=== PATIENT | male | born 1985 | race Caucasian/White ===

== ENCOUNTER 2017-05-04 07:03 | Emergency (ER) | payer OTHER ==
[2017-05-04 07:39] VITALS: TEMP 98.5; BMI 28.0
--- NOTE | 2017-05-04 07:42 | PDOC ---
History of Present Illness - General Chief Complaint: Pain, Acute Stated Complaint: ABDOMINAL PAIN Time Seen by Provider: 05/04/17 07:41 - History of Present Illness Initial Comments: 05/04/17 08:11 Previously healthy male presenting with sudden onset RLB/ right flank pain radiating to his right upper abdomen since 5 AM. The pain was sharp. sudden onset 10/10 in severity. Denies fevers, chills, nausea, vomtiing, urinary symptoms, diarrhea, sob, chest pain, or trauma to his back. Does not have history of kidney stones. Past History - Past Medical History Allergies/Adverse Reactions: Allergies Allergy/AdvReac Type Severity Reaction Status Date / Time No Known Allergies Allergy Verified 05/04/17 07:24 Home Medications: Ambulatory Orders Ibuprofen 800 mg PO TID PRN 10 Days #30 tablet 05/04/17 Ondansetron [Zofran Odt -] 4 mg SL BID PRN #14 od.tablet 05/04/17 CVA: No COPD: No DVT: No Dementia: No - Immunization History Immunization Up to Date: Yes - Suicide/Smoking/Psychosocial Hx Smoking History: Never smoked Information on smoking cessation initiated: No Hx Alcohol Use: No Drug/Substance Use Hx: No Substance Use Type: None Review of Systems - Review of Systems Constitutional: No: Chills, Diaphoresis, Fever HEENTM: No: Blurred Vision Respiratory: No: Cough, Shortness of Breath Cardiac (ROS): No: Chest Pain, Chest Tightness ABD/GI: No: Constipated, Diarrhea, Nausea, Vomiting : No: Burning, Dysuria, Hematuria, Incontinence Musculoskeletal: Yes: Back Pain. No: Muscle Pain, Muscle Weakness Integumentary: No: Bruising, Lesions, Rash Neurological: No: Headache, Seizure Psychiatric: No: Anxiety, Depression *Physical Exam - Vital Signs Last Vital Signs Temp Pulse Resp BP Pulse Ox 98.5 F 69 16 142/97 100 05/04/17 07:25 05/04/17 07:25 05/04/17 07:25 05/04/17 07:25 05/04/17 07:25 - Physical Exam General Appearance: Yes: Nourished, Appropriately Dressed, Apparent Distress, Mild Distress HEENT: positive: EOMI, RIC, Normal ENT Inspection, Normal Voice Neck: positive: Trachea midline, Normal Thyroid, Supple. negative: Tender, Rigid Respiratory/Chest: positive: Lungs Clear, Normal Breath Sounds. negative: Chest Tender, Respiratory Distress, Accessory Muscle Use Cardiovascular: positive: Regular Rhythm, Regular Rate Gastrointestinal/Abdominal: positive: Normal Bowel Sounds, Flat, Soft. negative : Tender Musculoskeletal: positive: Normal Inspection. negative: CVA Tenderness Extremity: positive: Normal Capillary Refill, Normal Inspection, Normal Range of Motion. 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 Denies urinary symptoms but UA returned positive for blood. US positive for moderate R sided hydronephrosis. Patient's pain was temporarily controlled with Toradol 15 IV. He is also now complaining of nausea. Will give another Toradol 15 IV + Zofran then reassess for discharge vs. admission for pain control. If feelign well, can DC with NSAID for pain control and return precautions. 05/04/17 10:06 Pain improved with toradol and nausea resolved with zofran. Will DC with follow up per above. 05/04/17 10:51 *DC/Admit/Observation/Transfer Diagnosis at time of Disposition: Renal calculus, right - Discharge Dispostion Disposition: HOME Condition at time of disposition: Improved Admit: No - Prescriptions Prescriptions: Ibuprofen 800 mg PO TID PRN 10 Days #30 tablet PRN Reason: Lower Back Pain Ondansetron [Zofran Odt -] 4 mg SL BID PRN #14 od.tablet PRN Reason: Nausea And/Or Vomiting - Referrals Referrals: Andree Bird [Primary Care Provider] - - Patient Instructions Printed Discharge Instructions: DI for Kidney Stones Additional Instructions: Usted tiene un clculo renal derecho que debe pasar con el tiempo. Por favor, tome bastante lquido y use ibuprofeno para el dolor. Regrese al servicio de urgencias si el dolor es demasiado intenso a pesar del uso de ibuprofeno. Puede mark ibuprofeno 800 MG hasta deion veces por da para el dolor. Tambin regrese si tiene fiebre, escalofros, nuseas o vmitos que mejoran con el medicamento o le impiden mark hayden ibuprofeno. Print Language: SWEDISH - Post Discharge Activity
--- NOTE | 2017-05-04 08:03 | PDOC ---
Attending Attestation - Resident Resident Name: [email or web address] - HPI HPI: 05/04/17 08:41 Pt presents to the ED complaining of flank pain radiating to the abdomen that began this morning at 5 am. Also complains of nausea with one episode of non bloody non bilious vomiting and dysuria. Denies hematuria or testicular pain. Denies fever. - Physicial Exam PE: 05/04/17 08:42 Agree with resident exam. Abdomen is non tender on my exam. No CVA tenderness. No point tenderness over spine. - Medical Decision Making 05/04/17 08:44 Pt presents to the ED complaining of flank pain and dysuria. differential includes renal stone, UTI, muscular back pain. Will check UA and renal US, give toradol for pain control.
[2017-05-04] MEDS ORDERED: KETOROLAC TROMETHAMINE 15 MG/ML VIAL IVPUSH ONE ×2 (08:05→10:04)
[2017-05-04] MEDS ORDERED: KETOROLAC TROMETHAMINE 15 MG/ML VIAL ONE ×2 (08:11→10:07)
[2017-05-04 08:17] LABS: URINE APPEARANCE CLOUDY; URINE BILIRUBIN NEGATIVE (NEGATIVE); URINE BLOOD 3+ (NEGATIVE); URINE COLOR AMBER; URINE GLUCOSE (UA) NEGATIVE (NEGATIVE); URINE KETONE NEGATIVE (NEGATIVE); URINE LEUK ESTERASE NEGATIVE (NEGATIVE); URINE NITRITE NEGATIVE (NEGATIVE); URINE UROBILINOGEN NEGATIVE mg/dL (0.2-1.0)
[2017-05-04 08:19] LABS: URINE PROTEIN 2+ (NEGATIVE)
[2017-05-04 08:29] LABS: EPI CELLS RARE /HPF (FEW); URINE BACTERIA FEW /hpf (NONE SEEN); URINE MUCUS MANY
[2017-05-04 08:31] LABS: BASO % 0.6 % (0-2.0); HEMATOCRIT 47.8 % (35.4-49); LYMPH % 31.9 % (8-40); MCH 29.1 pg (25.7-33.7); MCHC 33.5 g/dl (32.0-35.9); MEAN CELL VOLUME 86.9 fl (80-96); MEAN PLT VOLUME 9.6 fl (7.5-11.1); NEUT % 53.5 % (42.8-82.8); PLATELET COUNT 212 K/MM3 (134-434); RBC 5.51 M/mm3 (4.00-5.60); RDW 12.4 % (11.9-15.9)
[2017-05-04 08:42] LABS: ALBUMIN 4.4 g/dl (3.4-5.0); ALK PHOS 127 U/L (45-117); ANION GAP 6 (8-16); BLOOD UREA NITROGEN 15 mg/dL (7-18); CALCIUM 8.6 mg/dL (8.5-10.1); CHLORIDE 103 mmol/L (98-107); CO2 27 mmol/L (21-32); CREATININE 1.2 mg/dL (0.7-1.3); GLUCOSE,RANDOM 109 mg/dL (74-106); SGPT/ALT 39 U/L (12-78); SODIUM 136 mmol/L (136-145); TOT PROT 8.3 g/dl (6.4-8.2)
[2017-05-04 08:43] LABS: POTASSIUM 4.2 mmol/L (3.5-5.1); SGOT/AST 25 U/L (15-37)
[2017-05-04] MEDS ORDERED: ONDANSETRON *ODT* 4 MG TABLET SL ONE ×2 (10:05→11:06)
[2017-05-04] MEDS ORDERED: ONDANSETRON *ODT* 4 MG TABLET ONE ×2 (10:06→11:07)
[2017-05-04 11:18] VITALS: BP 140/85; PULSE 68
== END 2017-05-04 11:18 | disposition home or self-care (01) ==
LOC: JER 07:03
PROC: 3E0333Z Introduction of Anti-inflammatory into Peripheral Vein, Percutaneous Approach (ICD-10-PCS; principal; 2017-05-04)
DX: N13.2 Hydronephrosis with renal and ureteral calculous obstruction (principal)
CPT/HCPCS: 36415; 76775-TC; 80053; 81003; 81015; 85025; 96374; 99283-25

== ENCOUNTER 2020-05-04 11:42 | Emergency (ER) | payer OTHER ==
[2020-05-04 11:45] VITALS: BP 127/82; PULSE 70; TEMP 98; BMI 28.0
[2020-05-04 12:52] LABS: BASO % 0.8 % (0-2.0); EOS % 1.7 % (0-4.5); HEMATOCRIT 45.1 % (35.4-49); HEMOGLOBIN 15.3 GM/dL (11.7-16.9); LYMPH % 37.5 % (8-40); MCH 30.2 pg (25.7-33.7); MCHC 33.9 g/dl (32.0-35.9); MEAN CELL VOLUME 89.1 fl (80-96); MEAN PLT VOLUME 9.3 fl (7.5-11.1); MONO % 6.8 % (3.8-10.2); NEUT % 53.2 % (42.8-82.8); PLATELET COUNT 279 K/MM3 (134-434); RBC 5.07 M/mm3 (4.00-5.60); RDW 12.6 % (11.9-15.9); WHITE BLOOD COUNT 7.8 K/mm3 (4.0-10.0)
[2020-05-04 13:03] LABS: CHLORIDE 104 mmol/L (98-107); POTASSIUM 3.9 mmol/L (3.5-5.1); SODIUM 136 mmol/L (136-145)
[2020-05-04 13:05] LABS: ALBUMIN 3.9 g/dl (3.4-5.0); ANION GAP 6 MMOL/L (8-16); BLOOD UREA NITROGEN 17.5 mg/dL (7-18); CALCIUM 8.8 mg/dL (8.5-10.1); CO2 27 mmol/L (21-32)
[2020-05-04 13:06] LABS: GLUCOSE,RANDOM 98 mg/dL (74-106)
[2020-05-04 13:09] LABS: SGOT/AST 35 U/L (15-37); SGPT/ALT 52 U/L (13-61)
[2020-05-04 13:10] LABS: BILIRUBIN,TOTAL 0.7 mg/dL (0.2-1); TOT PROT 7.8 g/dl (6.4-8.2)
[2020-05-04 13:11] LABS: ALK PHOS 89 U/L (45-117)
== END 2020-05-04 13:52 | disposition home or self-care (01) ==
LOC: JER 11:42
DX: R07.9 Chest pain, unspecified (principal)
CPT/HCPCS: 36415; 71046-TC-FY; 80053; 82550; 82553; 84484; 85025; 93005; 93010; 99285-25